=== PATIENT | male | born 1990 | race Caucasian/White ===

== ENCOUNTER 2018-11-03 21:55 | Observation (INO) ==
[2018-11-03] MEDS ORDERED: OPTIRAY 320 125ml IV PRN (22:05)
--- NOTE | 2018-11-03 22:07 | CT Scan Report ---
CT head/brain wo con CLINICAL HISTORY: 28 years-old Male presenting with STROKE ALERT, slurred speech. TECHNIQUE: Multidetector CT imaging of the head was performed without the use of intravenous contrast . IV contrast: None. One or more dose lowering techniques were used consistent with the principles of ALARA (as low as reasonably achievable), including automatic exposure control, mA or kV adjustment t o individual patient size, and/or use of iterative reconstruction. COMPARISON: 06/22/2009. CT DOSE (mGy.cm): The estimated cumulative dose is 1074.96 mGy.cm. FINDINGS: Game Engineer topogram: Unremarkable. Ventricles and sulci normal in size. No hemorrhage. Brain parenchyma normal in appearance with preser nadege haro-white differentiation. No acute territorial infarct. No mass effect or midline shift. No ext ra-axial fluid collection. Paranasal sinuses and mastoid air cells clear. Calvarium intact. IMPRESSION: 1. No acute intracranial abnormality. Electronically signed by: Evert Borjas M.D. 11/03/2018 10:05 PM
[2018-11-03 22:17] LABS: Basophils # (auto) 0.02 K/uL (0-0.2); Basophils % (auto) 0.3 %; Eosinophils # (auto) 0.08 K/uL (0-0.5); Eosinophils % (auto) 1.3 %; Hemoglobin 13.8 g/dL (14.0-18.0); Lymphocytes % (auto) 40.5 %; Mean Corpuscular Hgb Conc 32.9 g/dL (32-36); Mean Corpuscular Volume 82.2 fL (80-100); Mean Platelet Volume 10.9 fL (7.4-10.4); Monocytes # (auto) 0.49 K/uL (0.11-0.59); Monocytes % (auto) 8.3 %; Neutrophils # (auto) 2.94 K/uL (1.4-6.5); Neutrophils % (auto) 49.6 %; Platelet Count 187 K/uL (130-400); RDW Coefficient of Variation 13.4 % (11.5-14.5); RDW Standard Deviation 40.7 fL (36.4-46.3); Red Blood Count 5.11 M/uL (4.7-6.1); White Blood Count 5.93 K/uL (4.8-10.8)
--- NOTE | 2018-11-03 22:17 | CT Scan Report ---
CT angio neck with con CLINICAL HISTORY: 28 years-old Male presenting with stroke, slurred speech. TECHNIQUE: Multidetector CT angiography of the neck was performed after the administration of intrave nous contrast. 3-D volumetric and/or maximum intensity projection (MIP) images were subsequently dayan nstructed for review. IV contrast: 116 mL of Optiray 320. One or more dose lowering techniques were u sed consistent with the principles of ALARA (as low as reasonably achievable), including automatic ex posure control, mA or kV adjustment to individual patient size, and/or use of iterative reconstructio n. Stenosis measurements were based on NASCET-like criteria (distal lumen diameter as the denominator for stenosis measurement). COMPARISON: None. CT DOSE (mGy.cm): The estimated cumulative dose is 648.79 mGy.cm. FINDINGS: Rotary Swaging Machine Operator topogram: Unremarkable. Aortic arch: Normal three-vessel aortic arch with patent origins of the branch vessels. Innominate artery: Patent. Right subclavian artery: Patent. Right common carotid artery: Patent. Right internal and external carotid arteries: Right carotid bifurcation patent. Right internal and ex ternal carotid arteries widely patent. Left common carotid artery: Patent. Left internal and external carotid arteries: Left carotid bifurcation patent. Left internal and exter nal carotid arteries widely patent. Left subclavian artery: Patent. Vertebral arteries: Codominant vertebral arteries. Origins and courses of the bilateral vertebral art eries patent. Other: Limited intracranial evaluation within normal limits. Right thyroid lobe enlarged possibly ind icating an underlying nodule. Aerated secretions in the left maxillary sinus. Normal cervical spine. Lung apices clear. IMPRESSION: 1. No evidence of dissection, focal vessel occlusion, or significant stenosis of the cervical arteri es. Electronically signed by: Evert Borjas M.D. 11/03/2018 10:15 PM
--- NOTE | 2018-11-03 22:21 | CT Scan Report ---
CT angio head w con CLINICAL HISTORY: 28 years-old Male presenting with stroke, Slurred speech. TECHNIQUE: Multidetector CT angiography of the head was performed after the administration of intrave nous contrast. 3-D volumetric and/or maximum intensity projection (MIP) images were subsequently dayan nstructed for review. IV contrast: 116 mL of Optiray 320. One or more dose lowering techniques were u sed consistent with the principles of ALARA (as low as reasonably achievable), including automatic ex posure control, mA or kV adjustment to individual patient size, and/or use of iterative reconstructio n. COMPARISON: None. CT DOSE (mGy.cm): The estimated cumulative dose is 648.79. FINDINGS: Truck Switcher topogram: Unremarkable. Suboptimal contrast bolus limits evaluation. This only mildly decreases diagnostic sensitivity the ex am. Anterior circulation: Intracranial portions of the internal carotid arteries patent to the level of t he termini. Anterior cerebral arteries patent. Middle cerebral arteries patent. Anterior communicatin g artery patent. Posterior circulation: Codominant vertebral arteries. Intradural portions of the vertebral arteries p atent. Posterior inferior cerebellar arteries patent. Basilar artery patent. Anterior inferior cerebe llar arteries poorly visualized. Superior cerebellar arteries patent. Posterior cerebral arteries pat ent. Left posterior communicating artery (P-comm) patent. Right P-comm hypoplastic or aplastic. Dural venous sinuses: Patent. Other: Allowing for the phase of contrast, brain parenchyma within normal limits. Calvarium intact. IMPRESSION: Suboptimal contrast bolus limits evaluation. This only mildly decreases diagnostic sensitivity the ex am. 1. No evidence of aneurysm, focal vessel occlusion, or significant stenosis of the intracranial johnna navya. Electronically signed by: Evert Borjas M.D. 11/03/2018 10:20 PM
[2018-11-03 22:28] LABS: Partial Thromboplastin Ratio 0.9; Partial Thromboplastin Time 24.8 Seconds (21.0-31.0); Prothrombin Time 10.6 Seconds (9.0-12.0)
[2018-11-03] MEDS ORDERED: ASPIRIN CHEW 324 MG PO STA (22:32)
[2018-11-03 22:47] LABS: Alanine Aminotransferase 29 U/L (12-78); Albumin Level 4.2 gm/dl (3.4-5.0); Aspartate Aminotransferase 23 U/L (15-37); BUN Creatinine Ratio 9.5 (10-20); Blood Urea Nitrogen 11 mg/dl (7-18); Calcium 9.7 mg/dl (8.5-10.1); Carbon Dioxide 27 mmol/L (21-32); Chloride 103 mmol/L (98-107); Creatinine Clr Calc Pharmacy 134.2 ml/min; Est GFR (African American) 104.2; Est GFR (Non-African American) 89.9; Glucose 109 mg/dl (70-99); Magnesium 1.8 mg/dl (1.8-2.4); Potassium 3.2 mmol/L (3.5-5.1); Sodium 139 mmol/L (136-145)
[2018-11-03 22:52] LABS: Albumin Globulin Ratio 1.3 (0.9-2); Alkaline Phosphatase 62 U/L (45-117); Bilirubin,Total 0.6 mg/dl (0.2-1); Globulin 3.3 gm/dl (2.5-4.0); Total Protein 7.5 gm/dl (6.4-8.2); Troponin I < 0.015 ng/ml (0-0.045)
[2018-11-03] MEDS ORDERED: ONDANSETRON INJ 2 MG/ML 2 ML VIAL IV PRN (23:08)
[2018-11-03] MEDS ORDERED: ACETAMINOPHEN 325 MG TAB PO PRN (23:08)
[2018-11-03] MEDS ORDERED: PHARMACIST DISCHARGE MED REC CONSULT PRN (23:08)
[2018-11-03] MEDS ORDERED: MAGNESIUM HYDROXIDE SUSP 30 ML UDC PO PRN (23:08)
[2018-11-03] MEDS ORDERED: ALUMINUM/MAGNESIUM SUSP 30 ML UDC PO PRN (23:08)
--- NOTE | 2018-11-03 23:13 | Emergency Department Note ---
Entered by Mayuri Sanchez acting as a scribe for Ruben Avina MD History of Present Illness General Chief complaint: Stroke Alert Time Seen by Provider: 11/03/18 21:57 Source: patient and EMS (cyber forensics analyst) History of Present Illness Onset (ago): minute(s) 30 Location: right (weakness) Pain Consistency: + other (worsening) Relieved By: + none Associated symptoms: + weakness (right arm, right leg) and + other (droopy face, slurred speech); no headaches The patient is a 28 year old M who presents to the Emergency Room with complain ts of worsening right-sided weakness that occurred 30 minutes ago. Initially, the majority of the HPI was provided by the cyber forensics analyst. The cyber forensics analyst notes that the patient was driving earlier tonight when he started to experience blurry vision. The cyber forensics analyst adds that the patient pulled off on the side of the road and called EMS. He notes that the patient then started to experience a droopy face, slurred speech, right arm weakness, and right leg weakness. He adds that the patient was dragging the right side of his body when EMS arrived at the scene. He states that the patient had a blood sugar level of 103 and a blood pressure of 150/90 in the ambulance. The patient adds that he is currently t aking anxiety medication. The patient denies experiencing headaches. The last known well time of the patient is 2100 (9pm). The patient states that he got off of work before starting to drive. He adds that he got into his car, drank some water, rolled down his windows, and started to drive. He states that quickly after starting to drive, his symptoms started. He states his symptoms have significantly improved since arrival here at the hospital. 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 and A total of 10 systems reviewed and were otherwise negative Physical Exam Vital Signs Vital Signs - 24 hr 11/03/18 22:12 11/03/18 22:24 11/03/18 22:30 Temperature 37.0 C Temperature Source Oral Sepsis Recent Fever Within 48 Hours No Sepsis Action Taken by Nursing No Action Required Pulse Rate 106 H 115 H 101 H Pulse Rate [Bilateral Apical] Pulse Rate from SpO2 Sensor 111 H 102 H Respiratory Rate 15 21 Respiratory Effort / Characteristics Non-Labored Spontaneous Respiratory Depth Normal Respiratory Pattern Regular Blood Pressure 167/102 H 149/96 H 153/99 H Blood Pressure [Left Arm] Blood Pressure Mean 123 113 117 Blood Pressure Mean [Left Arm] Pulse Oximetry 96 98 98 Oxygen Delivery Method Room Air Room Air Room Air 11/03/18 22:58 Temperature Temperature Source Sepsis Recent Fever Within 48 Hours Sepsis Action Taken by Nursing Pulse Rate Pulse Rate [Bilateral Apical] 103 H Pulse Rate from SpO2 Sensor Respiratory Rate 20 Respiratory Effort / Characteristics Respiratory Depth Respiratory Pattern Blood Pressure Blood Pressure [Left Arm] 167/113 H Blood Pressure Mean Blood Pressure Mean [Left Arm] 131 Pulse Oximetry 97 Oxygen Delivery Method GENERAL: Patient is in no acute distress. HEENT: No acute trauma, normocephalic atraumatic, mucous membranes moist, no nasal congestion, no scleral icterus. NECK: No stridor, no adenopathy, no meningismus, trachea is midline. LUNGS: Clear to auscultation bilaterally, no wheeze, no rhonchi, breath sounds equal. HEART: Mildly tachycardic rate, regular rhythm, no murmurs. ABDOMEN: Soft, nontender, bowel sounds positive, no hernias, no peritonitis. EXTREMITIES: No cyanosis or edema, full range of motion of all the joints without pain or difficulty, no signs for acute trauma. NEUROLOGIC: Subtle right-sided facial droop, subtle speech slur, eyebrow raise is equal bilaterally, no cerebellar dysfunction, no extremity drift. Skin: No rash, no jaundice. Course 2154: The patient was evaluated in room B1. A complete history and physical exam was performed. 2203: I reviewed the patient's case with Princess Moya PA Neurology. She states to get ready to give the patient TPA. 2231: I reviewed the patient's case with Princess Moya PA Neurology. She states that the patient is not a candidate for TPA. She did recommend to give the patient oral aspirin and admit the patient to the hospital. 2235: The ED nurse provided more history from the patient. He states that the patient has had issues with back pain and neck stiffness. He adds that the patient carried two heavy bags on his shoulders when leaving work today. 2242: I reviewed the patient's case with Dr. Ishmael Cruz, [facility] Hospitalist. He will evaluate the patient for further management. Consultations Consultation #1: I reviewed the patient's case with Princess Moya PA Neurology. She states to get ready to give the patient TPA. Time: 22:04 Consultation #2: I reviewed the patient's case with Princess Moya PA Neurology. She states that the patient is not a candidate for TPA. She did recommend to give the patient oral aspirin and admit the patient to the hospital. Time: 22:32 Consultation #3: I reviewed the patient's case with Dr. Ishmael Cruz, [facility] Hospitalist. He will evaluate the patient for further management. Time: 22:42 Administered Medications Ioversol (Optiray 320 125ml) 116 ml IV ONCE PRN PRN Reason: Interaction Checking Stop: 11/07/18 22:04 Last Admin: 11/03/18 22:05 Dose: 116 ml Documented by: [id number] Discontinued Medications Aspirin (Aspirin) 324 mg PO NOW STA Stop: 11/03/18 22:33 Last Admin: 11/03/18 22:41 Dose: 324 mg Documented by: [id number] Medical Decision Making Differential Diagnosis Differential diagnosis includes: stroke, intracranial bleeding, carotid dissection, anemia, metabolic imbalance, bells palsy, vasculitis, medication reaction, drug abuse Medical Records Attestation: I reviewed the patient's medical records. Home Medications Current Medication List: was personally reviewed by me Laboratory Data Attestation: I reviewed the patient's lab results. Result diagrams: 11/03/18 22:10 11/03/18 22:10 Lab Results 11/03/18 11/03/18 11/03/18 Range/Units 22:10 22:10 22:10 WBC 5.93 (4.8-10.8) K/uL RBC 5.11 (4.7-6.1) M/uL Hgb 13.8 L (14.0-18.0) g/dL Hct 42.0 (42-52) % MCV 82.2 (80-100) fL MCH 27.0 (25-34) pg MCHC 32.9 (32-36) g/dL RDW Std Deviation 40.7 (36.4-46.3) fL RDW Coeff of Jose 13.4 (11.5-14.5) % Plt Count 187 (130-400) K/uL MPV 10.9 H (7.4-10.4) fL Immature Gran % (Auto) 0.0 % Neut % (Auto) 49.6 % Lymph % (Auto) 40.5 % [place] % (Auto) 8.3 % Eos % (Auto) 1.3 % Baso % (Auto) 0.3 % Immature Gran # (Auto) 0.00 (0.00-0.02) K/uL Neut # (Auto) 2.94 (1.4-6.5) K/uL Lymph # (Auto) 2.40 (1.2-3.4) K/uL [place] # (Auto) 0.49 (0.11-0.59) K/uL Eos # (Auto) 0.08 (0-0.5) K/uL Baso # (Auto) 0.02 (0-0.2) K/uL PT 10.6 (9.0-12.0) Seconds INR 1.0 (0.9-1.1) APTT 24.8 (21.0-31.0) Seconds PTT Ratio 0.9 Sodium 139 (136-145) mmol/L Potassium 3.2 L (3.5-5.1) mmol/L Chloride 103 (98-107) mmol/L Carbon Dioxide 27 (21-32) mmol/L Anion Gap 9.0 (3-11) BUN 11 (7-18) mg/dl Creatinine 1.11 (0.6-1.4) mg/dl Est Cr Clr Drug Dosing 134.2 ml/min Est GFR ( Amer) 104.2 Est GFR (Non-Af Amer) 89.9 BUN/Creatinine Ratio 9.5 L (10-20) Glucose 109 H (70-99) mg/dl POC Glucose (70-99) Calcium 9.7 (8.5-10.1) mg/dl Magnesium 1.8 (1.8-2.4) mg/dl Total Bilirubin 0.6 (0.2-1) mg/dl AST 23 (15-37) U/L ALT 29 (12-78) U/L Alkaline Phosphatase 62 (45-117) U/L Troponin I < 0.015 (0-0.045) ng/ml Total Protein 7.5 (6.4-8.2) gm/dl Albumin 4.2 (3.4-5.0) gm/dl Globulin 3.3 (2.5-4.0) gm/dl Albumin/Globulin Ratio 1.3 (0.9-2) 11/03/18 Range/Units 22:15 WBC (4.8-10.8) K/uL RBC (4.7-6.1) M/uL Hgb (14.0-18.0) g/dL Hct (42-52) % MCV (80-100) fL MCH (25-34) pg MCHC (32-36) g/dL RDW Std Deviation (36.4-46.3) fL RDW Coeff of Jose (11.5-14.5) % Plt Count (130-400) K/uL MPV (7.4-10.4) fL Immature Gran % (Auto) % Neut % (Auto) % Lymph % (Auto) % [place] % (Auto) % Eos % (Auto) % Baso % (Auto) % Immature Gran # (Auto) (0.00-0.02) K/uL Neut # (Auto) (1.4-6.5) K/uL Lymph # (Auto) (1.2-3.4) K/uL [place] # (Auto) (0.11-0.59) K/uL Eos # (Auto) (0-0.5) K/uL Baso # (Auto) (0-0.2) K/uL PT (9.0-12.0) Seconds INR (0.9-1.1) APTT (21.0-31.0) Seconds PTT Ratio Sodium (136-145) mmol/L Potassium (3.5-5.1) mmol/L Chloride (98-107) mmol/L Carbon Dioxide (21-32) mmol/L Anion Gap (3-11) BUN (7-18) mg/dl Creatinine (0.6-1.4) mg/dl Est Cr Clr Drug Dosing ml/min Est GFR ( Amer) Est GFR (Non-Af Amer) BUN/Creatinine Ratio (10-20) Glucose (70-99) mg/dl POC Glucose 106 H (70-99) Calcium (8.5-10.1) mg/dl Magnesium (1.8-2.4) mg/dl Total Bilirubin (0.2-1) mg/dl AST (15-37) U/L ALT (12-78) U/L Alkaline Phosphatase (45-117) U/L Troponin I (0-0.045) ng/ml Total Protein (6.4-8.2) gm/dl Albumin (3.4-5.0) gm/dl Globulin (2.5-4.0) gm/dl Albumin/Globulin Ratio (0.9-2) Imaging Data Radiologist's Impression: Radiology results as stated below per my review and the radiologist's interpretation: CT angio head w con CLINICAL HISTORY: 28 years-old Male presenting with stroke, Slurred speech. TECHNIQUE: Multidetector CT angiography of the head was performed after the admi nistration of intravenous contrast. 3-D volumetric and/or maximum intensity projection (MIP) images were subsequently reconstructed for review. IV contrast: 116 mL of Optiray 320. One or more dose lowering techniques were used consistent with the principles of ALARA (as low as reasonably achievable), including automatic exposure control, mA or kV adjustment to individual patient size, and/or use of iterative reconstruction. COMPARISON: None. CT DOSE (mGy.cm): The estimated cumulative dose is 648.79. FINDINGS: Field Installer topogram: Unremarkable. Suboptimal contrast bolus limits evaluation. This only mildly decreases diagnostic sensitivity the exam. Anterior circulation: Intracranial portions of the internal carotid arteries patent to the level of the termini. Anterior cerebral arteries patent. Middle cerebral arteries patent. Anterior communicating artery patent. Posterior circulation: Codominant vertebral arteries. Intradural portions of the vertebral arteries patent. Posterior inferior cerebellar arteries patent. Basilar artery patent. Anterior inferior cerebellar arteries poorly visualized. Superior cerebellar arteries patent. Posterior cerebral arteries patent. Left posterior communicating artery (P-comm) patent. Right P-comm hypoplastic or aplastic. Dural venous sinuses: Patent. Other: Allowing for the phase of contrast, brain parenchyma within normal limits. Calvarium intact. IMPRESSION: Suboptimal contrast bolus limits evaluation. This only mildly decreases diagno stic sensitivity the exam. 1. No evidence of aneurysm, focal vessel occlusion, or significant stenosis of the intracranial arteries. Electronically signed by: Evert Borjas M.D. 11/03/2018 10:[address] angio neck with con CLINICAL HISTORY: 28 years-old Male presenting with stroke, slurred speech. TECHNIQUE: Multidetector CT angiography of the neck was performed after the administration of intravenous contrast. 3-D volumetric and/or maximum intensity projection (MIP) images were subsequently reconstructed for review. IV contrast: 116 mL of Optiray 320. One or more dose lowering techniques were used consistent with the principles of ALARA (as low as reasonably achievable), including automatic exposure control, mA or kV adjustment to individual patient size, and/or use of iterative reconstruction. Stenosis measurements were based on NASCET-like criteria (distal lumen diameter as the denominator for stenosis measurement). COMPARISON: None. CT DOSE (mGy.cm): The estimated cumulative dose is 648.79 mGy.cm. FINDINGS: Field Installer topogram: Unremarkable. Aortic arch: Normal three-vessel aortic arch with patent origins of the branch vessels. Innominate artery: Patent. Right subclavian artery: Patent. Right common carotid artery: Patent. Right internal and external carotid arteries: Right carotid bifurcation patent. Right internal and external carotid arteries widely patent. Left common carotid artery: Patent. Left internal and external carotid arteries: Left carotid bifurcation patent. Left internal and external carotid arteries widely patent. Left subclavian artery: Patent. Vertebral arteries: Codominant vertebral arteries. Origins and courses of the bilateral vertebral arteries patent. Other: Limited intracranial evaluation within normal limits. Right thyroid lobe enlarged possibly indicating an underlying nodule. Aerated secretions in the left maxillary sinus. Normal cervical spine. Lung apices clear. IMPRESSION: 1. No evidence of dissection, focal vessel occlusion, or significant stenosis of the cervical arteries. Electronically signed by: Evert Borjas M.D. 11/03/2018 10:[address] head/brain wo con CLINICAL HISTORY: 28 years-old Male presenting with STROKE ALERT, slurred speech. TECHNIQUE: Multidetector CT imaging of the head was performed without the use of intravenous contrast. IV contrast: None. One or more dose lowering techniques were used consistent with the principles of ALARA (as low as reasonably achievable), including automatic exposure control, mA or kV adjustment to individual patient size, and/or use of iterative reconstruction. COMPARISON: 06/22/2009. CT DOSE (mGy.cm): The estimated cumulative dose is 1074.96 mGy.cm. FINDINGS: Field Installer topogram: Unremarkable. Ventricles and sulci normal in size. No hemorrhage. Brain parenchyma normal in appearance with preserved haro-white differentiation. No acute territorial infarct. No mass effect or midline shift. No extra-axial fluid collection. Paranasal sinuses and mastoid air cells clear. Calvarium intact. IMPRESSION: 1. No acute intracranial abnormality. Electronically signed by: Evert Borjas M.D. 11/03/2018 10:05 PM ECG Data Attestation: I personally reviewed and interpreted this ECG as follows: Indication: weakness Rate (beats per minute): 100 Rhythm: normal sinus Findings: + other (LVH, QTc 464); no ST elevation and no acute ischemic change Blood Pressure Blood Pressure Findings: Elevated blood pressure Blood Pressure Disposition: further management by hospitalist [facility] Narrative There is no leukocytosis or concerning anemia. No significant electrolyte abnormality or kidney failure. No coagulopathy. No evidence for liver enzyme elevation. EKG shows a sinus rhythm, no acute ischemia. Cardiac enzyme testing x1 is not consistent with acute cardiac injury. Brain CT shows no acute bleed or mass-effect. CT angios of the head and neck were performed, there was no aneurysm, no dissection or arterial occlusion. On exam, the patient had some slight right-sided facial droop, the right leg and right arm weakness had resolved before my evaluation. A stroke alert was called. The TPA was premixed. Patient was seen by the [facility] neurologist via telemedicine. The patient is not to receive TPA, his symptoms have now completely resolved, even the right facial droop has resolved. He was given oral aspirin at the recommendation of the neurologist. Patient presents with symptoms consistent with a stroke. His symptoms have resolved spontaneously. He is not a TPA candidate. He does require a hospital stay and further work-up. I spoke to the patient and case finishing machine adjuster. The on-call hospitalist was consulted. Impression & Plan Stroke-like symptoms, Right sided weakness, Slurred speech Critical Care Time Critical Care Time: Yes I have personally spent 40 minutes of critical care time in the direct management of this patient. This includes bedside care, interpretation of diagnostic studies, and testing, discussion with consultants, patient, and family members, and other required patient management activities. This 40 minutes is in excess of all separately billable procedures. Discharge Plan Visit Data *Final* Discharge Date/Time: 11/03/18 23:57 Chief Complaint: Stroke Alert ED Provider: Ruben Avina Discharge Problem: Stroke-like symptoms, Right sided weakness, Slurred speech Patient Disposition: Admitted As Inpatient Discharge Instructions Interventions: ED Discharge Assessment Last Done: 11/03/18 23:57 The drissibe's documentation has been prepared under my direction and personally reviewed by me in its entirety. I confirm that the note above accurately reflects all work, treatment, procedures, and medical decision making performed by me.
--- NOTE | 2018-11-03 23:29 | History & Physical Report ---
Date of Service November 03, 2018 Assessment & Plan (1) Stroke-like symptoms: Patient presented as a stroke alert due to acute onset of right-sided weakness, loss of sensation and difficulty with speech, all of which resolved the time of arrival to the ED. CT head without contrast was negative. CTA head and neck with contrast was negative. The patient will be admitted to telemetry for serial cardiac enzymes, serial EKG's, cardiac rhythm monitoring and a 2-D echocardiogram with Dopplers. We will order an MRI of the brain without contrast. With a stroke without TPA protocol. Order arterial hypercoagulable work-up Aspirin 81 mg daily. Present on Admission?: Yes (2) Right sided weakness: See above Present on Admission?: Yes (3) Slurred speech: See above Present on Admission?: Yes (4) Anxiety: Continue buspirone Present on Admission?: Yes (5) GERD (gastroesophageal reflux disease): Change Nexium to pantoprazole Present on Admission?: Yes (6) Hypokalemia: Optimize potassium orally and IV. Present on Admission?: Yes (7) Blood pressure elevated without history of HTN: Patient does not have a history of hypertension. The blood pressure does seem to be gradually declining more towards the normal range, and will continue to allow her to do so. Present on Admission?: Yes History of Present Illness Chief Complaint: The patient presented to the emergency department with resolved symptoms of acute onset of right arm and right leg weakness and droopy face with slurred speech. Primary Care Provider: Temi Herrera MD The patient is a 28-year-old male who was driving home from work and noticed the acute onset of right arm and leg weakness with droopy face and loss of sensation on the right side along with slurred speech. He pulled over to the side of the road, called EMS, who then called into the ED. Patient was brought in as a stroke alert. He underwent CT of head, CTA head and neck, all of which were normal. His symptoms had completely resolved by the time of arrival to the emergency department. He said no previous occurrence of these types of symptoms. He did not have any associated headache or loss of bowel or bladder control. Allergies Allergy/AdvReac Type Severity Reaction Status Date / Time No Known Allergies Allergy Verified 11/03/18 23:23 Home Medications Home Medications Medication Instructions Recorded Confirmed Type buspirone 7.5 mg tablet 7.5 mg PO BID #60 tab 10/09/18 11/03/18 Rx buspirone 5 mg PO BID 11/03/18 11/03/18 History esomeprazole magnesium [Nexium] 20 mg PO DAILY 11/03/18 11/03/18 History Past Med/Surg History Medical History Anxiety (Chronic) Family History Other No significant family history Social History Preferred Language: Indonesian Communication Ability: Effective [employer] Required: No Beliefs That Will Affect Care: None Current Living Situation: Parent Current Living Situation Comment: father Other Information That Helps Us Care for You: No Feels Safe at Home: Yes Safety Concerns: Feels Safe At This Time Smoking Status: Never smoker Do You Dip or Chew Tobacco: No ; Second Hand Exposure: No ; Hx Alcohol Use: Yes (socially) Hx Substance Use: No Review of Systems Review of Systems: The patient denies chest pain, palpitations, shortness of breath, dyspnea on exertion, cough, lower extremity swelling, sore throat, fevers, chills, sweats, weight change, fatigue, nausea, vomiting, diarrhea , constipation, abdominal pain, pelvic pain, blood in urine or stool, dysuria, urinary frequency or urgency, lightheadedness, dizziness, headache, memory loss, loss of consciousness, rash, abnormal bruising or bleeding, generalized arthralgias or myalgias, back or neck pain, or night sweats. The review of systems is otherwise negative other than for that already noted above, and at least 10 systems have been reviewed. Physical Exam Physical Exam: The patient is awake, alert and oriented 3, well developed and well nourished, normocephalic and atraumatic, lying in bed and in no acute distress. HEENT--PERRL, EOMI, mucous membranes and oropharynx dry. Neck--supple. No JVD. No bruits. Thyroid normal, trachea midline, no adenopathy. Heart--normal S1 and S2. No murmurs, rubs or gallops. Lungs--clear bilaterally, no respiratory distress, no accessory muscle use. Abdomen--normal bowel sounds and soft. Nontender. Nondistended, no hernias or masses, no organomegaly. Extremities--no cyanosis or clubbing. No edema. There are good distal pulses b/l. Dermatologic--normal skin turgor, normal color, no abnormal lymph nodes, no rash. Neurologic--cranial nerves II through XII grossly intact. Rheumatologic--normal range of motion. Psychiatric--normal affect. Results & Data Vital Signs (Past 12 Hours) Vital Signs Temp Pulse Pulse Resp BP BP Pulse Ox 11/03/18 23:22 104 H 20 156/99 H 96 11/03/18 22:58 103 H 20 167/113 H 97 11/03/18 22:30 101 H 21 153/99 H 98 11/03/18 22:24 115 H 149/96 H 98 11/03/18 22:12 98.6 F 106 H 15 167/102 H 96 Laboratory Results Laboratory Results WBC 5.93 K/uL (4.8-10.8) 11/03/18 22:10 RBC 5.11 M/uL (4.7-6.1) 11/03/18 22:10 Hgb 13.8 g/dL (14.0-18.0) L 11/03/18 22:10 Hct 42.0 % (42-52) 11/03/18 22:10 MCV 82.2 fL (80-100) 11/03/18 22:10 MCH 27.0 pg (25-34) 11/03/18 22:10 MCHC 32.9 g/dL (32-36) 11/03/18 22:10 RDW Std Deviation 40.7 fL (36.4-46.3) 11/03/18 22:10 RDW Coeff of Jose 13.4 % (11.5-14.5) 11/03/18 22:10 Plt Count 187 K/uL (130-400) 11/03/18 22:10 MPV 10.9 fL (7.4-10.4) H 11/03/18 22:10 Immature Gran % (Auto) 0.0 % 11/03/18 22:10 Neut % (Auto) 49.6 % 11/03/18 22:10 Lymph % (Auto) 40.5 % 11/03/18 22:10 [place] % (Auto) 8.3 % 11/03/18 22:10 Eos % (Auto) 1.3 % 11/03/18 22:10 Baso % (Auto) 0.3 % 11/03/18 22:10 Immature Gran # (Auto) 0.00 K/uL (0.00-0.02) 11/03/18 22:10 Neut # (Auto) 2.94 K/uL (1.4-6.5) 11/03/18 22:10 Lymph # (Auto) 2.40 K/uL (1.2-3.4) 11/03/18 22:10 [place] # (Auto) 0.49 K/uL (0.11-0.59) 11/03/18 22:10 Eos # (Auto) 0.08 K/uL (0-0.5) 11/03/18 22:10 Baso # (Auto) 0.02 K/uL (0-0.2) 11/03/18 22:10 PT 10.6 Seconds (9.0-12.0) 11/03/18 22:10 INR 1.0 (0.9-1.1) 11/03/18 22:10 APTT 24.8 Seconds (21.0-31.0) 11/03/18 22:10 PTT Ratio 0.9 11/03/18 22:10 Sodium 139 mmol/L (136-145) 11/03/18 22:10 Potassium 3.2 mmol/L (3.5-5.1) L 11/03/18 22:10 Chloride 103 mmol/L (98-107) 11/03/18 22:10 Carbon Dioxide 27 mmol/L (21-32) 11/03/18 22:10 Anion Gap 9.0 (3-11) 11/03/18 22:10 BUN 11 mg/dl (7-18) 11/03/18 22:10 Creatinine 1.11 mg/dl (0.6-1.4) 11/03/18 22:10 Est Cr Clr Drug Dosing 134.2 ml/min 11/03/18 22:10 Est GFR ( Amer) 104.2 11/03/18 22:10 Est GFR (Non-Af Amer) 89.9 11/03/18 22:10 BUN/Creatinine Ratio 9.5 (10-20) L 11/03/18 22:10 Glucose 109 mg/dl (70-99) H 11/03/18 22:10 POC Glucose 106 (70-99) H 11/03/18 22:15 Calcium 9.7 mg/dl (8.5-10.1) 11/03/18 22:10 Magnesium 1.8 mg/dl (1.8-2.4) 11/03/18 22:10 Total Bilirubin 0.6 mg/dl (0.2-1) 11/03/18 22:10 AST 23 U/L (15-37) 11/03/18 22:10 ALT 29 U/L (12-78) 11/03/18 22:10 Alkaline Phosphatase 62 U/L (45-117) 11/03/18 22:10 Troponin I < 0.015 ng/ml (0-0.045) 11/03/18 23:56 Total Protein 7.5 gm/dl (6.4-8.2) 11/03/18 22:10 Albumin 4.2 gm/dl (3.4-5.0) 11/03/18 22:10 Globulin 3.3 gm/dl (2.5-4.0) 11/03/18 22:10 Albumin/Globulin Ratio 1.3 (0.9-2) 11/03/18 22:10 Diagnostic Findings [place], [place] [phone] CT Scan Report Patient: NIMA ERVIN Date: 11/03/18 MR#: [id number]: [address] [facility] Acct ID:[id number]: [address] Date: 1990[facility] Zip: [place] [address] Age: 28Location: ED Sex: M Room/Bed: Att Phy:Diagnosis: STROKE ALERT Susie Phy: Temi Herrera MDService Date: 11/03/18 Fam Phy:Interpreting Phy: Evert Borjas MD Admit Phy: Ordering Phy: Ruben Avina M.D. cc: ~ CT head/brain wo con CLINICAL HISTORY: 28 years-old Male presenting with STROKE ALERT, slurred speech. TECHNIQUE: Multidetector CT imaging of the head was performed without the use of intravenous contrast. IV contrast: None. One or more dose lowering techniques were used consistent with the principles of ALARA (as low as reasonably achievable), including automatic exposure control, mA or kV adjustment to individual patient size, and/or use of iterative reconstruction. COMPARISON: 06/22/2009. CT DOSE (mGy.cm): The estimated cumulative dose is 1074.96 mGy.cm. FINDINGS: Barrel Header topogram: Unremarkable. Ventricles and sulci normal in size. No hemorrhage. Brain parenchyma normal in appearance with preserved haro-white differentiation. No acute territorial infarct. No mass effect or midline shift. No extra-axial fluid collection. Paranasal sinuses and mastoid air cells clear. Calvarium intact. IMPRESSION: 1. No acute intracranial abnormality. Electronically signed by: Evert Borjas M.D. 11/03/2018 10:05 PM Dictated: 11/03/182203 Transcribed: 11/03/182203 [place], [place] [phone] CT Scan Report Patient: NIMA ERVIN Date: 11/03/18 MR#: [id number]: [address] [facility] Acct ID:[id number]: [address] Date: 1990[facility] Zip: [place] [address] Age: 28Location: ED Sex: M Room/Bed: Att Phy:Diagnosis: STROKE ALERT Susie Phy: Temi Herrera MDService Date: 11/03/18 [facility] Phy:Interpreting Phy: Evert Borjas MD Admit Phy: Ordering Phy: Ruben Avina M.D. cc: ~ CT angio neck with con CLINICAL HISTORY: 28 years-old Male presenting with stroke, slurred speech. TECHNIQUE: Multidetector CT angiography of the neck was performed after the administration of intravenous contrast. 3-D volumetric and/or maximum intensity projection (MIP) images were subsequently reconstructed for review. IV contrast: 116 mL of Optiray 320. One or more dose lowering techniques were used consistent with the principles of ALARA (as low as reasonably achievable), including automatic exposure control, mA or kV adjustment to individual patient size, and/or use of iterative reconstruction. Stenosis measurements were based on NASCET-like criteria (distal lumen diameter as the denominator for stenosis measurement). COMPARISON: None. CT DOSE (mGy.cm): The estimated cumulative dose is 648.79 mGy.cm. FINDINGS: Barrel Header topogram: Unremarkable. Aortic arch: Normal three-vessel aortic arch with patent origins of the branch vessels. Innominate artery: Patent. Right subclavian artery: Patent. Right common carotid artery: Patent. Right internal and external carotid arteries: Right carotid bifurcation patent. Right internal and external carotid arteries widely patent. Left common carotid artery: Patent. Left internal and external carotid arteries: Left carotid bifurcation patent. Left internal and external carotid arteries widely patent. Left subclavian artery: Patent. Vertebral arteries: Codominant vertebral arteries. Origins and courses of the bilateral vertebral arteries patent. Other: Limited intracranial evaluation within normal limits. Right thyroid lobe enlarged possibly indicating an underlying nodule. Aerated secretions in the left maxillary sinus. Normal cervical spine. Lung apices clear. IMPRESSION: 1. No evidence of dissection, focal vessel occlusion, or significant stenosis of the cervical arteries. Electronically signed by: Evert Borjas M.D. 11/03/2018 10:15 PM Dictated: 11/03/182211 Transcribed: 11/03/182214 [place], [place] [phone] CT Scan Report Patient: NIMA ERVIN Date: 11/03/18 MR#: [id number]: [address] [place] [address] Acct ID:[id number]: [address] Date: 1990[facility] Zip: [place] [address] Age: 28Location: ED Sex: M Room/Bed: Att Phy:Diagnosis: STROKE ALERT Susie Phy: Temi Herrera MDService Date: 11/03/18 Fam Phy:Interpreting Phy: Evert Borjas MD Admit Phy: Ordering Phy: Ruben Avina M.D. cc: ~ CT angio head w con CLINICAL HISTORY: 28 years-old Male presenting with stroke, Slurred speech. TECHNIQUE: Multidetector CT angiography of the head was performed after the administration of intravenous contrast. 3-D volumetric and/or maximum intensity projection (MIP) images were subsequently reconstructed for review. IV contrast: 116 mL of Optiray 320. One or more dose lowering techniques were used consistent with the principles of ALARA (as low as reasonably achievable), including automatic exposure control, mA or kV adjustment to individual patient size, and/or use of iterative reconstruction. COMPARISON: None. CT DOSE (mGy.cm): The estimated cumulative dose is 648.79. FINDINGS: Barrel Header topogram: Unremarkable. Suboptimal contrast bolus limits evaluation. This only mildly decreases diagnostic sensitivity the exam. Anterior circulation: Intracranial portions of the internal carotid arteries patent to the level of the termini. Anterior cerebral arteries patent. Middle cerebral arteries patent. Anterior communicating artery patent. Posterior circulation: Codominant vertebral arteries. Intradural portions of the vertebral arteries patent. Posterior inferior cerebellar arteries patent. Basilar artery patent. Anterior inferior cerebellar arteries poorly visualized. Superior cerebellar arteries patent. Posterior cerebral arteries patent. Left posterior communicating artery (P-comm) patent. Right P-comm hypoplastic or aplastic. Dural venous sinuses: Patent. Other: Allowing for the phase of contrast, brain parenchyma within normal limits. Calvarium intact. IMPRESSION: Suboptimal contrast bolus limits evaluation. This only mildly decreases diagnostic sensitivity the exam. 1. No evidence of aneurysm, focal vessel occlusion, or significant stenosis of the intracranial arteries. Electronically signed by: Evert Borjas M.D. 11/03/2018 10:20 PM Dictated: 11/03/182215 Transcribed: 11/03/182215 Code Status & VTE Plan Code Status Full code VTE Prophylaxis Plan VTE Prophylaxis will be ordered: Yes PG Care Time/CCT Total # of Minutes Spent Total Time Spent with Patient: Total time spent is greater than 50% in coordination of care (as documented) at patient's floor/unit and/or counseling patient:
--- NOTE | 2018-11-04 06:50 | Magnetic Resonance Report ---
MRI OF THE BRAIN WITHOUT CONTRAST CLINICAL HISTORY: Right-sided weakness. COMPARISON STUDY: Head CT and CTA of the head November 03, 2018. TECHNIQUE: Utilizing a 1.5 [place] magnet and dedicated coil, multiplanar, multiecho imaging of the bra in was performed without IV contrast. FINDINGS: There are no foci of restricted diffusion. No acute intracranial hemorrhage, midline shift or mass effect is present. Brain findings normal. Ventricular system is normal. Basilar cisterns are patent. There are no extra-axial collections. Flow-voids within major intracranial vessels are presen t. No intracranial masses identified on this unenhanced examination. No parenchymal signal abnormalit y is identified. Calvarial signal is normal. There is mild sinus mucosal thickening. IMPRESSION: 1. No acute intracranial findings. Unremarkable unenhanced MRI of the brain. 2. Mild sinus mucosal thickening. Electronically signed by: Christian Uriostegui M.D. 11/04/2018 6:48 AM
[2018-11-04 07:28] LABS: Basophils # (auto) 0.01 K/uL (0-0.2); Basophils % (auto) 0.2 %; Eosinophils # (auto) 0.04 K/uL (0-0.5); Eosinophils % (auto) 0.7 %; Hematocrit (blood only) 41.9 % (42-52); Hemoglobin 13.9 g/dL (14.0-18.0); Immature Granulocytes # (auto) 0.01 K/uL (0.00-0.02); Immature Granulocytes % (auto) 0.2 %; Lymphocytes # (auto) 1.55 K/uL (1.2-3.4); Lymphocytes % (auto) 25.7 %; Mean Corpuscular Hemoglobin 27.2 pg (25-34); Mean Corpuscular Hgb Conc 33.2 g/dL (32-36); Mean Platelet Volume 10.7 fL (7.4-10.4); Monocytes # (auto) 0.47 K/uL (0.11-0.59); Monocytes % (auto) 7.8 %; Neutrophils # (auto) 3.95 K/uL (1.4-6.5); Neutrophils % (auto) 65.4 %; Platelet Count 180 K/uL (130-400); RDW Coefficient of Variation 13.5 % (11.5-14.5); Red Blood Count 5.11 M/uL (4.7-6.1); White Blood Count 6.03 K/uL (4.8-10.8)
[2018-11-04 07:43] LABS: Estimated Average Glucose 100 mg/dl; Hemoglobin A1C 5.1 % (4.5-5.6)
--- NOTE | 2018-11-04 08:03 | Neurology Consultation ---
Date of Consultation November 04, 2018 Assessment & Plan (1) TIA (transient ischemic attack): (2) Blood pressure elevated without history of HTN: (3) Slurred speech: (4) Right sided weakness: (5) Anxiety: Patient had an episode November 03 of dysarthria and right sammie paresis with some right sammie sensory changes. These markedly improved within an hour. Currently he has some slight dysesthesias in the right face only. Neurologic examination today reveals no focal neurologic findings, meningeal signs, or encephalopathy. MRI of the brain did not show a stroke. He does not have old small vessel ischemia on MRI either. CT angiography of the head and neck did not show any significant vessel anomalies or stenoses. The etiology of his event yesterday was likely secondary to acute hypertension/vasospasm. A thrombotic/ischemic event cannot be excluded but he does not have any evidence of this by imaging. The patient does not have a history of high blood pressure prior to this visit. He has no other significant stroke risk factors. Patient has a history of anxiety help somewhat with buspirone. Anxiety may be contributing to hypertension. Recommendations: 1. Agree with 81 mg aspirin tablet daily for now. 2. Echocardiogram is pending. 3. Control blood pressure as you are doing aiming for a mean arterial pressure of approximately 100. 4. Hemoglobin A1c, at 5.1 is quite normal and he needs no further testing or treatment for glucose issues. 5. Lipids are technically within normal limits although cholesterol is high normal. He could conceivably be a candidate for low-dose statin. 6. Follow up with his primary care physician. Defer anxiety treatment to PCP. Overall, I spent a total of 80 minutes with this case including review of records, review of MRI films, direct evaluation the patient at bedside, and discussing the case with this patient and mother at bedside, kennel staff member, and Dr. Grimmcluding differential diagnosis and treatment options. History of Present Illness Reason for Consultation: Patient is a 28-year-old, who I was asked to see at the request of Dr. Cruz, for neurologic consultation regarding stroke versus TIA. Requesting Physician: Dr. Cruz Attending Physician: Ishmael Cruz MD History of Present Illness Patient has no history of cardiac issues, hypertension, diabetes, asthma, ulcer, or stroke. He does have a history of anxiety and currently is on buspirone with some help. He is on no other medication. He has been trying to lose weight through dieting. The patient got up on November 03 feeling well. 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 He had some Haitian food for lunch and salad with chicken for dinner. He got off work at 2100 and was feeling well. He apparently job and to the parking garage (as usual) to his car on the 6th level. He did waited around his car for a few minutes and drank some water. He drove down out of the parking garage and sometime after leaving the parking garage she noted the onset of some right arm and leg numbness and heavy feeling. His face was numb on the right as well. He had some blurry vision to the right for a few seconds and then this resolved. He then apparently drove to his mother's house which was about 5 minutes away. His mother, who is at bedside this morning, verifies the patient had right-sided weakness and could not walk dragging the right leg. His speech was slurred although he could understand. The patient himself had no pain or headache. There was no confusion or incontinence of urine. She called 911. By the time the police and ambulance arrived he was still having his symptoms. He noticed that in the ambulance his right side started getting better and less numb. His speech was starting to improve as well. Therefore, the worst of his symptoms lasted about 20-30 minutes at most. He arrived to the emergency room November 03 at 2212, with temperature of 37.0, pulse 106, blood pressure 167/102, respiratory rate 15, O2 saturation 96%. His exam in the emergency room was noted for some mild right facial droop and mild slurred speech. He felt his face was a little numb at that point as well. [facility] tele stroke was engaged and initial consideration for t- PA was given but it was decided not to give tPA because his symptoms rapidly cleared. CT scan of the head was unremarkable. CT angiography of the head and neck showed no significant stenoses or vessel anomalies diffusely. CBC was unremarkable. Chem profile was unremarkable. Hemoglobin A1c is 5.1. Triglycerides are 81. Total cholesterol is 187. Laboratory studies for hypercoagulable state are pending. MRI of the brain showed no acute stroke. There was no significant old ischemia and no other abnormalities were seen. I reviewed these films. This morning, the patient feels essentially back to baseline. He has some slight dysesthesias around the outside of his eye on the right without vision problems, speech issues, headache, pain, or weakness. His balance has been good walking to the bathroom and any has a little bit of fatigue in general. Allergies Allergy/AdvReac Type Severity Reaction Status Date / Time No Known Allergies Allergy Verified 11/03/18 23:23 Home Medications Home Medications Medication Instructions Recorded Confirmed Type buspirone 7.5 mg tablet 7.5 mg PO BID #60 tab 10/09/18 11/03/18 Rx buspirone 5 mg PO BID 11/03/18 11/03/18 History esomeprazole magnesium [Nexium] 20 mg PO DAILY 11/03/18 11/03/18 History Patient History Medical History Anxiety (Chronic) Surgical History S/P tonsillectomy Family History Mother Anxiety disorder Father Hypertension Asthma Osteoarthritis Other No significant family history Social History Preferred Language: [place] Communication Ability: Effective [employer] Programmer Required: No Beliefs That Will Affect Care: None Current Living Situation: Parent Current Living Situation Comment: father current occupational status: employed 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 Other Information That Helps Us Care for You: No Feels Safe at Home: Yes Safety Concerns: Feels Safe At This Time Smoking Status: Former smoker Tobacco Type: smokeless tobacco ; Do You Dip or Chew Tobacco: Yes ; Number of Years Since Quit: 4 ; Second Hand Exposure: No ; Hx Alcohol Use: Yes (socially) Alcohol type: beer Alcohol Intake Frequency Comment: Occasional/social, every few weeks Hx Substance Use: No Review of Systems Constitutional: + fatigue; no fever and no weakness Eyes: no diplopia, no eye pain and no worsening vision Ear, Nose, Mouth, Throat: no ear pain, no tinnitus, no hearing loss, no dizziness, no snoring, no hoarseness and no dysphagia Respiratory: no cough and no dyspnea Cardiovascular: no chest pain, no palpitations and no lightheadedness Gastrointestinal: no abdominal pain, no nausea and no vomiting Genitourinary: no dysuria and no urinary incontinence Musculoskeletal: no back pain, no neck pain, no radicular pain, no joint pain and no myalgia Integumentary: no rash and no lesions Neurologic: no gait abnormality, no localized weakness, no generalized weakness, no tingling, no numbness, no tremor(s), no abnormal movements, no headache(s), no abnormal speech, no confusion and no memory loss Psychiatric: + anxiety; no depression, no irritability, no difficulty concentrating, no confusion and no hallucinations Endocrine: no fatigue and no flushing Hematologic / Lymphatic: no easy bleeding and no easy bruising Allergy / Immunological: no urticaria and no problem reported Physical Exam Physical Exam: The patient is right-handed. The patient is awake, alert, and attentive. Speech is normal without any aphasia or dysarthria. he can name objects, repeat phrases, and has normal spontaneous speech. Mentation and thought processes are intact, with orientation to person, place and time, and normal fund of knowledge. Attention and concentration are normal. Mood and affect are normal and appropriate. General appearance and grooming are normal. Short and long-term memory are intact. The discs are sharp with positive venous pulsations bilaterally. There are no exudates, hemorrhages, or blood vessel changes seen. Pupils are 4 mm bilaterally and reactive to light. Extraocular eye muscles are intact without nystagmus. Visual acuity and visual tim seem normal grossly to confrontation. There are no deficits to sensation in the face in all 3 distributions of the fifth cranial nerve bilaterally. Corneal reflexes are positive bilaterally. Facial strength and symmetry was normal bilaterally. Hearing seems normal to whisper and finger rub bilaterally. Palate moves well without asymmetry. There is normal sternocleidomastoid and trapezius (shoulder shrug) strength bilaterally. Tongue is midline with good strength bilaterally. Neck has a full range of motion without discomfort. There are no cervical bruits bilaterally. There are no cranial or ocular bruits. Heart is without murmur. There is a regular rhythm and rate. Cervical, thoracic, and lumbar spine are nontender to palpation. Gait is narrow based, with good arm swing, turns, and stance. With outstretched arms there is no drift. There are no resting, postural, or action tremors. There is no ataxia with finger to nose testing. There is good facility in the hands. No other abnormal involuntary movements are noted. Motor strength is 5/5 diffusely in the arms bilaterally including deltoids, biceps, triceps, brachioradialis, wrist flexors and extensors, road driver, and intrinsic hand muscles. Motor strength is 5/5 diffusely in the legs bilaterally including hip flexors, quadriceps, hamstrings, gastrocnemius, tibialis anterior, tibialis posterior, and Peroneii muscles. Toe extensors are normal and there is good bulk in the extensor digitorum brevis muscles bilaterally. The limbs have good tone without rigidity or spasticity. There is no atrophy noted in the muscles. Muscle bulk is normal, there is no tenderness to palpation, no myotonia to percussion, and no fasciculations seen. Sensory examination is intact to touch and pin throughout all 4 limbs diffusely. Reflexes are 1/4 in the biceps, triceps, brachioradialis, quadriceps, and Achilles tendons bilaterally. There is no clonus bilaterally. Toes are downgoing with plantar stimulation bilaterally. Peripheral pulses are present and of normal quality distally in all 4 limbs. There is no peripheral edema noted in the limbs. Results & Data Vital Signs (Past 12 Hours) Vital Signs Temp Pulse Pulse Pulse Resp BP BP 11/04/18 03:43 36.8 C 85 18 153/75 H 11/04/18 00:32 37.0 C 99 H 15 142/79 H 11/03/18 23:55 97 H 18 159/84 H 11/03/18 23:22 104 H 20 156/99 H 11/03/18 22:58 103 H 20 167/113 H 11/03/18 22:30 101 H 21 153/99 H 11/03/18 22:24 115 H 149/96 H 11/03/18 22:12 37.0 C 106 H 15 167/102 H Pulse Ox 11/04/18 03:43 97 11/04/18 00:32 97 11/03/18 23:55 98 11/03/18 23:22 96 11/03/18 22:58 97 11/03/18 22:30 98 11/03/18 22:24 98 11/03/18 22:12 96 Diagnostic Findings MRI OF THE BRAIN WITHOUT CONTRAST CLINICAL HISTORY: Right-sided weakness. COMPARISON STUDY: Head CT and CTA of the head November 03, 2018. TECHNIQUE: Utilizing a 1.5 [place] magnet and dedicated coil, multiplanar, multiecho imaging of the brain was performed without IV contrast. FINDINGS: There are no foci of restricted diffusion. No acute intracranial hemorrhage, midline shift or mass effect is present. Brain findings normal. Ventricular system is normal. Basilar cisterns are patent. There are no extra- axial collections. Flow-voids within major intracranial vessels are present. No intracranial masses identified on this unenhanced examination. No parenchymal signal abnormality is identified. Calvarial signal is normal. There is mild sinus mucosal thickening. IMPRESSION: 1. No acute intracranial findings. Unremarkable unenhanced MRI of the brain. 2. Mild sinus mucosal thickening. Electronically signed by: Christian Uriostegui M.D. 11/04/2018 6:48 AM PG Care Time/CCT Total # of Minutes Spent Total Time Spent with Patient: Total time spent is greater than 50% in coordination of care (as documented) at patient's floor/unit and/or counseling patient:
[2018-11-04 08:07] LABS: BUN Creatinine Ratio 12.8 (10-20); Blood Urea Nitrogen 11 mg/dl (7-18); Calcium 9.4 mg/dl (8.5-10.1); Carbon Dioxide 27 mmol/L (21-32); Chloride 105 mmol/L (98-107); Cholesterol 197 mg/dl (0-200); Creatinine Clr Calc Pharmacy 176.2 ml/min; Est GFR (African American) 138.8; Est GFR (Non-African American) 119.7; Glucose 99 mg/dl (70-99); Potassium 3.5 mmol/L (3.5-5.1); Sodium 141 mmol/L (136-145); Triglycerides 81 mg/dl (0-150); VLDL Cholesterol 16 mg/dl
[2018-11-04 08:11] LABS: Chol HDL Ratio 4; HDL Cholesterol 55 mg/dl; LDL Cholesterol Calculated 126 mg/dl; Troponin I < 0.015 ng/ml (0-0.045)
[2018-11-04] MEDS ORDERED: ASPIRIN 81 MG ECTAB PO SCH (09:00)
[2018-11-04] MEDS ORDERED: ATORVASTATIN 20 MG TAB PO SCH (09:00)
--- NOTE | 2018-11-04 11:05 | Discharge Summary ---
Date of Service November 04, 2018 Admission HPI Per Admitting Provider The patient is a 28-year-old male who was driving home from work and noticed the acute onset of right arm and leg weakness with droopy face and loss of sensation on the right side along with slurred speech. He pulled over to the side of the road, called EMS, who then called into the ED. Patient was brought in as a stroke alert. He underwent CT of head, CTA head and neck, all of which were normal. His symptoms had completely resolved by the time of arrival to the emergency department. He said no previous occurrence of these types of symptoms. He did not have any associated headache or loss of bowel or bladder control. Admission Exam Per Admitting Provider The patient is awake, alert and oriented 3, well developed and well nourished, normocephalic and atraumatic, lying in bed and in no acute distress. HEENT--PERRL, EOMI, mucous membranes and oropharynx dry. Neck--supple. No JVD. No bruits. Thyroid normal, trachea midline, no adenopathy. Heart--normal S1 and S2. No murmurs, rubs or gallops. Lungs--clear bilaterally, no respiratory distress, no accessory muscle use. Abdomen--normal bowel sounds and soft. Nontender. Nondistended, no hernias or masses, no organomegaly. Extremities--no cyanosis or clubbing. No edema. There are good distal pulses b/l. Dermatologic--normal skin turgor, normal color, no abnormal lymph nodes, no rash. Neurologic--cranial nerves II through XII grossly intact. Rheumatologic--normal range of motion. Psychiatric--normal affect. Principal Diagnosis Stroke like symptoms/TIA, Discharge Exam Constitutional well developed, well nourished, cooperative, comfortable and + overweight Respiratory normal respiratory effort; no respiratory distress, no retractions and no cough Auscultation: lungs clear to auscultation bilaterally; no diminished lung sounds, no crackles, no rales and no wheezes Cardiovascular RRR, no murmur, no edema Extremities: no calf tenderness Gastrointestinal (Abdomen) normal bowel sounds, soft, nontender, no hepatosplenomegaly Neurologic PERRL, EOMI, accommodation nl, no face palsy, no dysarthria moves all extremities and awake; no focal motor deficits Speech / Cognition: + abnormal speech Motor/Sensory: no tremor Cranial Nerves: PERRL, EOM intact bilaterally and normal facial strength Discharge Data Allergies Allergy/AdvReac Type Severity Reaction Status Date / Time No Known Allergies Allergy Verified 11/03/18 23:23 Consultations 11/03/18 22:37 ED Decision to Admit Stat 11/03/18 23:08 Consult Neurology Routine 11/03/18 23:11 Consult Case Management - Discharge Planning Routine Consult Case Management - Discharge Planning Routine Ordered Studies 11/03/18 CT head/brain wo con Stat 11/03/18 21:54 CT angio head w con Stat CT angio neck with con Stat 11/03/18 23:13 MR brain wo con Stat Hospital Course (1) TIA (transient ischemic attack): Patient was admitted to the hospital for sudden onset right sided weakness through upper and lower extremity as well as drooping of right side of face and right eye blurry vision. CT of head in ED was negative for intracranial bleed, MRI of head was negative for tissue abnormalities, masses, inflammation. Neurology was consulted for their recommendations on care. Given his presentation and quick resolution of symptoms and their work-up, neurology suspected that onset was brought about by an arterial spasm. Patient also attested to being under a great deal of stress at work and may very well have an underlying component of stress induced symptoms or some degree of conversion disorder. He does have a history of anxiety and this would warrant further investigation as to whether or not counseling or anxiety management strategies would help prevent something like this from happening again in the future. We did have a lengthy bedside discussion regarding proper anxiety and stress management strategies going forward when he is discharged from the hospital. Patient also had a number of high blood pressure readings while in the hospital. Highest of these was 167/113 with the average being in the 150s over 70s to 80s. The patient was started on amlodipine 5 mg daily in order to help offset these hypertensive pressures as well as reduce the risk of future vasospastic spasm causing the symptoms that brought him to the hospital this episode. (2) Stroke-like symptoms: (3) Blood pressure elevated without history of HTN: Total Time Total Time Spent Total Time Spent (In Minutes): >30 Discharge Plan Discharge Items Patient Disposition: Home - Self-Care Reason For Visit: TIA Discharge Diagnosis: Stroke Like Symptoms Activity: Resume your previous activity Non-emergency contact: Primary Care Provider Call non-emergency contact if: you have any medication questions and your symptoms worsen Follow-up/Referrals: Temi Herrera MD [Primary Care Provider] - Diet: Regular Addtl Attending Provider Instructions: You were admitted to the hospital due to an episode of sudden weakness in your right arm, leg and drooping of the right side of your face. Upon arrival with EMS you got a CT scan and MRI of the brain which rules out any bleeds, abnormalities or clot in your brain that could cause a stroke. The neurology te am also saw you while you were in the hospital, and given the negative tests and clearance of your symptoms relatively quickly, the likelihood of it being due to a stroke is low. More likely is that an artery in your brain clamped down for a short period of time, causing these symptoms. Also possible is a "brain panic attack" that Dr. Haji spoke to you about, also known as conversion syndrome. These best way to stop this from happening again is two pronged. On the one hand, controlling your high blood pressure with the daily 5 mg Amlodipine that we're starting. In addition, discussing with your PCP better anxiety management strategies which include medication, exercise, and seeing a counselor for anxiety management techniques. While in the hospital you also received an echo of your heart to evaluate if you had a small hole in the middle of it that would allow clots in the heart to travel to your brain. Likelihood of it being positive and changing your medication management is low, but you will be contacted with the results of the study. We also ran blood tests to see if you are genetically at increased risk to have clots form in your blood. These tests will take some time to return and will be forwarded to your primary care physician when they come in. Until then, make sure to take the daily 81 mg Aspirin as a precaution. Follow up with your Primary care provider in the next week to go over what happened in the hospital and ensure proper transition of care. If you have a repeat episode where you lose feeling in one or more of your limbs, are unable to move them, lose feeling in your face, are unable or have trouble speaking, have part of your face droop down suddenly, return to the hospital as these could be signs of a stroke. Pending Studies at Discharge: Yes Studies:: cardiac trans-thoracic Echo hyper-coaguability panel Stand-Alone Forms: Medications to Prevent Stroke, My [facility], [place] k/School Release (Inpt) Medications and DC Order Prescriptions: New aspirin [Ecotrin Low Strength] 81 mg Tablet,Delayed Release (Dr/Ec) 81 mg PO QAM 30 Days Qty: 30 RF: 0 amlodipine 5 mg tablet 5 mg PO DAILY Qty: 30 RF: 0 Continued buspirone 7.5 mg tablet 7.5 mg PO BID Qty: 60 RF: 0 buspirone 5 mg tablet 5 mg PO BID RF: 0 esomeprazole magnesium [Nexium] 20 mg Capsule,Delayed Release(Dr/Ec) 20 mg PO DAILY RF: 0 Discharge Orders: Discharge Order (Routine); Ordered 11/04/18 Ordered By: Yessica Wolff Admission Data Admit Date/Time: 11/03/18 23:09 Attending Provider: Mahamed Haji Admit Provider: Ishmael Cruz Primary Care Provider: Temi Herrera Other Providers: Ishmael Cruz ; Daniel Waddell III ; Yessica Wolff Other Interventions: Discharge Summary Assessment (RN) Last Done: 11/04/18 13:31 DC Date/Time DO NOT enter until pt leaves facility: 11/04/18 14:36 Supervising Physician Co-Signing Physician Notes I personally examined the patient and verified all herring points of history and exam, discussed case, and agree with decision making with Dr Wolff. Feeling better. No current complaints. See Dr. Wolff's notes, patient does have significant stress. Vitals noted, in general he is awake and alert pleasant no distress. HEENT normocephalic atraumatic mucous members are moist. No focal neuro deficits. Breathing unlabored no accessory muscle use good effort. Skin shows no rashes no pallor or icterus. Transient neurologic deficits -Differential being hypertensive induced versus stress-induced -Echo pending, very outside chance of anything cardioembolic but if he has no septal defects this would be unlikely, especially given that he essentially had MCA distribution of deficits, and while he is healthy enough that he could theoretically have a functional TIA from a cardioembolic event affecting his MCA distribution, one would expect a clot that size to at least cause some degree of actual ischemic changes on MRI which he had none. -Extensive discussions on stress management, close PCP follow-up, recommended counseling -Initiate amlodipine to prevent vasoconstriction/treat blood pressure better. -Stable for home, close PCP follow-up Resident Activity Tracking Resident Involvement: Resident Care Provided Care Provided: Adult Hospital Medicine
[2018-11-04] MEDS ORDERED: STROKE PATIENT DISCHARGE STA (13:09)
--- NOTE | 2018-11-04 13:59 | Pharmacy Report ---
Pharmacist Stroke Counseling - Date of Service November 04, 2018 - Scope: Pharmacy has been consulted to provide medication discharge counseling for this patient admitted with possible transient ischemic attack as per the Pharmacist Discharge Counseling for Stroke Patients Protocol. - Medications on Discharge: Home Medications Medication Instructions Recorded Confirmed buspirone 5 mg PO BID 11/03/18 11/03/18 esomeprazole magnesium [Nexium] 20 mg PO DAILY 11/03/18 11/03/18 New Rx's Medication Instructions Recorded buspirone 7.5 mg tablet 7.5 mg PO BID #60 tab 10/09/18 amlodipine 5 mg PO DAILY #30 tab 11/04/18 aspirin [Ecotrin Low Strength] 81 mg PO QAM 30 Days #30 tab 11/04/18 - Action: The above medications, specifically ones for stroke treatment/prophylaxis, have been reviewed in detail with the patient and/or patient patient care representative(s) prior to discharge. This includes indication, common adverse reactions, drug interactions, and medication administration. Medication counseling has been employed using the teach-back method to ensure understanding. - Outcome: The patient and/or patient patient care representative(s) have demonstrated understanding of the medications. Please note, they are aware that the pharmacist will call them within 72 hours post-discharge to confirm that the appropriate medications are being taken and answer any further medication related questions the patient might have at that time. Contact information Individual to be contacted: Loy Relationship to patient (if applicable): Self Phone number: [phone] Best time to call: after 8am Additional comments: Thank you for allowing pharmacy to be involved in the care of this patient. Please call [phone] or [phone] with any additional questions
--- NOTE | 2018-11-06 15:42 | Pharmacy Report ---
Pharmacist Post D/C Phone Note - Phone Note: Date of phone call: November 06, 2018. The patient and/or patient inbound call center representative(s) were unable to be reached for a follow-up phone call within the 72 hour time frame. Discharge counseling pharmacist contact information has already been provided to the patient should questions arise. Thank you for allowing us to be involved in the care of this patient. - Home Medications: Home Medications Medication Instructions Recorded Confirmed buspirone 5 mg PO BID 11/03/18 11/06/18 esomeprazole magnesium [Nexium] 20 mg PO DAILY 11/03/18 11/06/18 New Rx's Medication Instructions Recorded buspirone 7.5 mg tablet 7.5 mg PO BID #60 tab 10/09/18 amlodipine 5 mg PO DAILY #30 tab 11/04/18 aspirin [Ecotrin Low Strength] 81 mg PO QAM 30 Days #30 tab 11/04/18
--- NOTE | 2018-11-07 09:52 | Pharmacy Report ---
Pharmacist Post D/C Phone Note - Phone Note: Date of phone call: November 07, 2018. Individual with whom pharmacist spoke to: NIMA ERVIN The following questions were reviewed during the phone call with responses listed below each: Can you tell me the medications that you are currently taking as well as when and how you take each medication? -See Table Below When have you missed any doses of your medications? - NO What side effects are you having from your medications, specifically, the new medications you were started on? - none, had headache on Tuesday ... I instructed patient to tell physician about this. What questions do you have about your medications? - none What problems are you having obtaining your medications? - none When is your next appointment with your primary care doctor? - morning Additional comments: - Patient very friendly and appreciative of phone call. As per the Pharmacist Discharge Counseling for Stroke Patients Protocol, this phone call has been completed within 72 hours of discharge. Thank you for allowing us to be involved in the care of this patient. - Home Medications: Home Medications Medication Instructions Recorded Confirmed buspirone 5 mg PO BID 11/03/18 11/06/18 esomeprazole magnesium [Nexium] 20 mg PO DAILY 11/03/18 11/06/18 New Rx's Medication Instructions Recorded buspirone 7.5 mg tablet 7.5 mg PO BID #60 tab 10/09/18 amlodipine 5 mg PO DAILY #30 tab 11/04/18 aspirin [Ecotrin Low Strength] 81 mg PO QAM 30 Days #30 tab 11/04/18
[2018-11-08 05:41] LABS: Anti Cardiolipin Ab IgG <14 GPL (< = 14); Anti Cardiolipin Ab IgM <12 MPL (< = 12); Anti-Cardiolipin Ab IgA <11 APL (< = 11); B2 Glycoprotein IgA <9 SAU (<=20); B2 Glycoprotein IgG <9 SGU (<=20); B2 Glycoprotein IgM <9 SMU (<=20); Lupus Anticoagulant Negative (Negative)
== END 2018-11-04 14:36 | disposition home or self-care (01) ==
LOC: 2S 21:55 → ED 21:55 → SUATTDRO 23:09 → 2S 23:57